=== PATIENT | female | born 1955 | race Asian ===

== ENCOUNTER 2024-11-20 10:49 | Emergency (ER) | payer MEDICARE, OTHER ==
[~2024-11-20] VITALS: Ht 157.5 cm; Wt 63.6 kg
[2024-11-20 10:52] VITALS: TEMP 97.8
[2024-11-20] MEDS ORDERED: [UNRECOGNIZED DRUG - REMARK] PO (10:58)
[2024-11-20] MEDS: ACETAMINOPHEN 325 MG TABLET PO ONE (12:33)
[2024-11-20] MEDS: METHOCARBAMOL 500 MG TABLET PO ONE (12:33)
[2024-11-20] MEDS: LIDOCAINE 5% TRANSDERMAL PATCH TD ONE (12:33)
[2024-11-20] MEDS: KETOROLAC TROMETHAMINE 30 MG/ML VIAL IM ONE (12:33)
[2024-11-20 13:00] VITALS: BP 149/79; PULSE 82; RESP 16; O2SAT 99
== END 2024-11-20 13:04 | disposition home or self-care (01) ==
LOC: EMS 10:49
DX: M54.50 Low back pain, unspecified (principal); I10 Essential (primary) hypertension
CPT/HCPCS: 99284; 96372; J1885